=== PATIENT | male | born 1950 | race Caucasian/White ===

== ENCOUNTER 2020-04-28 08:22 | Emergency (ER) | payer OTHER ==
[2020-04-28] MEDS ORDERED: TETRACAINE HCL 0.5% 4ML OPTH ONE (08:59)
[2020-04-28] MEDS ORDERED: FLUORESCEIN SODIUM 1 MG/WRAP ONE (08:59)
--- NOTE | 2020-04-28 09:04 | EDPHYS ---
Physician Documentation [facility] Name: Nacho Martínez Age: 69 yrs Sex: Male : 1950 Arrival Date: 04/28/2020 Time: 08:24 Bed 13 Private MD: ED Physician Andrew Green HPI: 04/28 08:55 This 69 yrs old Male presents to ER via Ambulatory with complaints of Eye rn Problem. 08:55 The patient is experiencing foreign body sensation, redness, tearing, The patient rn sustained Unknown. to the left eye. Onset: The symptoms/episode began/occurred 2 day(s) ago. Duration: the symptoms are continuous. Aggravated by nothing. Alleviated by saline drops. Patient wears glasses. Severity of symptoms: At their worst the symptoms were mild in the emergency department the symptoms are unchanged. The patient has not experienced similar symptoms in the past. The patient has not recently seen a physician. Does not remember something hitting eye but denies high speed injury such as grinder gear or something similar. Reports has been outside a lot, windy, as well as playing with grandkids and might have gotten something in eye. . Historical: - Allergies: 08:36 Grass; sv 08:36 No Known Drug Allergies; sv - PMHx: 08:36 None; sv - PSHx: 08:36 mouth, nose, ear reconstruction; left leg; sv - Immunization history:: Flu vaccine is not up to date. - Social history:: Smoking status: Patient denies any tobacco usage or history of. - Family history:: not pertinent. - Hospitalizations: : No recent hospitalization is reported. ROS: 08:55 Constitutional: Negative for fever, chills, and weight loss, Eyes: + left eye pain and rn redness Exam: 08:55 Visual Acuity: Visual acuity is within normal limits. rn 08:55 Constitutional: This is a well developed, well nourished patient who is awake, alert, rn and in no acute distress. Eyes: + small corneal abrasion at 5 o'clock position left eye, no foreign body or rust ring Vital Signs: 08:33 BP 160 / 93; Pulse 76; Resp 16; Temp 97.9; Pulse Ox 99% ; Weight 97.52 kg; Height 5 ft. sv 9 in. (175.26 cm); 09:00 BP 132 / 83; Pulse 70; Resp 14; Pulse Ox 96% on R/A; vg1 08:33 Body Mass Index 31.75 (97.52 kg, 175.26 cm) MDM: 08:27 Patient medically screened. rn 08:55 Differential diagnosis: Corneal abrasion of Corneal ulcer of Foreign body in. Data rn reviewed: vital signs, nurses notes, and as a result, I will discharge patient. Counseling: I had a detailed discussion with the patient and/or guardian regarding: the historical points, exam findings, and any diagnostic results supporting the discharge/admit diagnosis, the need for outpatient follow up, to return to the emergency department if symptoms worsen or persist or if there are any questions or concerns that arise at home. Response to treatment: the patient's symptoms have mildly improved after treatment, and as a result, I will discharge patient. Special discussion: I discussed with the patient/guardian in detail that at this point there is no indication for admission to the hospital. It is understood, however, that if the symptoms persist or worsen the patient needs to return immediately for re-evaluation. Administered Medications: No medications were administered Disposition: 04/28/20 09:03 Discharged to Home. Impression: Injury of conjunctiva and corneal abrasion without foreign body, left eye. - Condition is Stable. - Discharge Instructions: Corneal Abrasion. - Prescriptions for Vigamox 0.5 % Ophthalmic Drops - instill 1 drop by OPHTHALMIC route every 8 hours for 7 days; 5 milliliter. - Medication Reconciliation Form, Thank You Letter, Antibiotic Education, Prescription Opioid Use form. - Follow up: Private Physician; When: As needed; Reason: Recheck today's complaints, Re-evaluation by your physician. - Problem is new. - Symptoms have improved. Signatures: Natividad D eLeon RN RN sv Andrew Green MD MD rn Garcia, Anushka, RN RN vg1 Corrections: (The following items were deleted from the chart) 09:01 08:55 Constitutional: Negative for fever, chills, and weight loss, Eyes: + small rn corneal abrasion at 5 o'clock position left eye, no foreign body or rust ring rn 09:14 09:03 04/28/2020 09:03 Discharged to Home. Impression: Injury of conjunctiva and vg1 corneal abrasion without foreign body, left eye. Condition is Stable. Forms are Medication Reconciliation Form, Thank You Letter, Antibiotic Education, Prescription Opioid Use. Follow up: Private Physician; When: As needed; Reason: Recheck today's complaints, Re-evaluation by your physician. Problem is new. Symptoms have improved. rn
--- NOTE | 2020-04-28 09:04 | ER ---
Nurse's Notes [facility] Name: Nacho Martínez Age: 69 yrs Sex: Male : 1950 Arrival Date: 04/28/2020 Time: 08:24 Bed 13 Private MD: Diagnosis: Injury of conjunctiva and corneal abrasion without foreign body, left eye Presentation: 04/28 08:33 Chief complaint: Patient states: left eye redness and drainage x 2 days. Coronavirus sv screen: Client denies travel out of the [place] in the last 14 days. At this time, the client does not indicate any symptoms associated with coronavirus-19. Ebola Screen: No symptoms or risks identified at this time. Initial Sepsis Screen: Does the patient meet any 2 criteria? No. Patient's initial sepsis screen is negative. Does the patient have a suspected source of infection? No. Patient's initial sepsis screen is negative. Risk Assessment: Do you want to hurt yourself or someone else? Patient reports no desire to harm self or others. Onset of symptoms was April 26, 2020. 08:33 Method Of Arrival: Ambulatory sv 08:33 Acuity: UNRULY 3 sv Historical: - Allergies: 08:36 Grass; sv 08:36 No Known Drug Allergies; sv - PMHx: 08:36 None; sv - PSHx: 08:36 mouth, nose, ear reconstruction; left leg; sv - Immunization history:: Flu vaccine is not up to date. - Social history:: Smoking status: Patient denies any tobacco usage or history of. - Family history:: not pertinent. - Hospitalizations: : No recent hospitalization is reported. Screenin:30 Abuse screen: Denies threats or abuse. Nutritional screening: No deficits noted. vg1 Tuberculosis screening: No symptoms or risk factors identified. Fall Risk No fall in past 12 months (0 pts). No secondary diagnosis (0 pts). No IV (0 pts). Ambulatory Aid- None/Bed Rest/Nurse Assist (0 pts). Gait- Normal/Bed Rest/Wheelchair (0 pts) Mental Status- Oriented to own ability (0 pts). Total Walters Fall Scale indicates No Risk (0-24 pts). Assessment: 08:30 General: Appears in no apparent distress. comfortable, Behavior is calm, cooperative. vg1 08:30 General: Reports Left eye irriatation, that began about 3-4 days ago. States feels like vg1 something is in the eye. Stated that on the first day that he had crust on the eye and had to place water to open it. States no injury to eye. Pain: Denies pain. Neuro: Level of Consciousness is awake, alert, obeys commands, Oriented to person, place, time, situation. Cardiovascular: Patient's skin is warm and dry. Respiratory: Airway is patent is compromised Respiratory effort is even, unlabored, Respiratory pattern is regular, symmetrical. GI: No signs and/or symptoms were reported involving the gastrointestinal system. : No signs and/or symptoms were reported regarding the genitourinary system. EENT: Eyes are tearing on left eye Sclera/Cornea are reddened in left eye. Derm: Skin is pink, warm \T\ dry. Musculoskeletal: Range of motion: intact in all extremities. Vital Signs: 08:33 BP 160 / 93; Pulse 76; Resp 16; Temp 97.9; Pulse Ox 99% ; Weight 97.52 kg; Height 5 ft. sv 9 in. (175.26 cm); 09:00 BP 132 / 83; Pulse 70; Resp 14; Pulse Ox 96% on R/A; vg1 08:33 Body Mass Index 31.75 (97.52 kg, 175.26 cm) sv ED Course: 08:24 Patient arrived in ED. rg4 08:27 Andrew Green MD is Attending Physician. rn 08:28 Anushka Anton RN is Primary Nurse. vg1 08:35 Triage completed. sv 08:35 Patient has correct armband on for positive identification. Bed in low position. Call vg1 light in reach. Pulse ox on. NIBP on. 08:36 Arm band placed on. sv 09:05 No provider procedures requiring assistance completed. Patient did not have IV access vg1 during this emergency room visit. Administered Medications: No medications were administered Outcome: 09:03 Discharge ordered by . rn 09:12 Discharged to home ambulatory. vg1 09:12 Condition: stable 09:12 Discharge instructions given to patient, Instructed on discharge instructions, follow up and referral plans. medication usage, Demonstrated understanding of instructions, follow-up care, medications, Prescriptions given X 1. 09:14 Patient left the ED. vg1 Signatures: Natividad De Leon RN RN Andrew Gould MD MD rn Garcia, Mabel rg4 Anushak Anton, RN RN vg1
[2020-04-30 09:13] VITALS: BP 132/83; O2SAT 96
[2020-04-30 09:19] VITALS: TEMP 97.9
== END 2020-04-28 09:14 | disposition home or self-care (01) ==
LOC: ER 08:22
DX: S05.02XA Injury of conjunctiva and corneal abrasion without foreign body, left eye, initial encounter (principal); X58.XXXA Exposure to other specified factors, initial encounter; Y93.9 Activity, unspecified; Y92.017 Garden or yard in single-family (private) house as the place of occurrence of the external cause
CPT/HCPCS: 99283

== ENCOUNTER 2023-10-08 16:00 | Emergency (ER) | payer OTHER ==
--- OUTSIDE RECORDS SUMMARY | 2023-10-08 16:04 | XMS REPORT | Continuity of Care Document ---
Author Name Unknown Address [address] [place] [address] [address] [place] [address] [facility] Address [address] [facility] [address] [place] [address] Care Team Providers Care Bible Reader Name Role Phone Unavailable Unavailable Unavailable Payers Payer Name Policy Type Policy Number Effective Date Expirati on Date Source [employer] [id number] Allergies, Adverse Reactions, Alerts Allergy Name Allergy Type Status Severity Reaction(s) Onset Date Inactive Date Treating Clinician Comments Source NO KNOWN ALLERGIE S Drug Class Active [facility] Encounters Start Date/Time End Date/Time Encounter Type Admission Type Attending Clinicians Care Facility Care Department Encounter ID Source 2020-10-01 08:54:00 2020-10-01 08:54:00 Emergency X [facility] ERT [id number] [facility]
[2023-10-08 17:08] LABS: Absolute Eosinophils 0.1 K/uL (0-0.5); Absolute Lymphocytes (CBC) 1.3 K/uL (0.7-4.9); Absolute Monocytes 0.5 K/uL (0.1-1.3); Absolute Neutrophil 5.2 K/uL (1.8-8.0); Basophils % 0.7 % (0-1.3); Eosinophils % 1.4 % (0-4.4); Hematocrit 41.3 % (39.6-49.0); Hemoglobin 14.5 g/dL (13.6-17.9); MCH 28.8 pg (27.0-35.0); MCHC 35.2 g/dL (32.0-36.0); MCV 81.8 fL (80-100); MPV 7.6 fL (7.6-11.3); Monocytes % 6.6 % (3.3-12.3); Neutrophils % 73.3 % (41.7-73.7); Nucleated Red Blood Cells % 0.1 % (0-0); Platelets 201 thou/uL (152-406); RBC Red Blood Cell Count 5.05 M/uL (4.33-5.43); Red Cell Distribution Width 13.7 % (12.1-15.2)
[2023-10-08 17:21] LABS: Anion Gap 9.6 mEq/L (5.0-15.0); Potassium 3.6 mEq/L (3.5-5.1)
--- NOTE | 2023-10-08 17:36 | ER ---
Nurse's Notes [facility] Name: Nacho Martínez Age: 73 yrs Sex: Male : 1950 Arrival Date: 10/08/2023 Time: 16:00 Bed 5 Private MD: Diagnosis: Essential (primary) hypertension Presentation: 10/07 16:03 Chief complaint: EMS states: Pt from home, recently had lisinopril increased from 5 mg ph to 10 mg, took meds today as prescribed but BP remained high, initial BP 180s systolic, 5 mg labetalol given, pt asymptomatic. Coronavirus screen: Vaccine status: Patient reports receiving the 2nd dose of the covid vaccine. Ebola Screen: No symptoms or risks identified at this time. Initial Sepsis Screen: Does the patient meet any 2 criteria? No. Patient's initial sepsis screen is negative. Does the patient have a suspected source of infection? No. Patient's initial sepsis screen is negative. Risk Assessment: Do you want to hurt yourself or someone else? Patient reports no desire to harm self or others. Onset of symptoms was October 08, 2023. 16:03 Method Of Arrival: EMS: [facility] 16:03 Acuity: UNRULY 3 Triage Assessment: 16:20 General: Appears in no apparent distress. Behavior is calm, cooperative. Pain: Denies ph pain. Neuro: Level of Consciousness is awake, alert, obeys commands, Oriented to person, place, situation. Cardiovascular: Capillary refill < 3 seconds in bilateral fingers Patient's skin is warm and dry. Respiratory: Airway is patent Respiratory effort is even, unlabored. Historical: - Allergies: 16:12 Grass; ph - Home Meds: 16:17 donepezil oral [Active]; lisinopril 10 mg Oral tablet [Active]; Metformin Oral [Active];ph - PMHx: 16:17 Diabetes mellitus; Hypertensive disorder; Dementia; ph - Immunization history:: Adult Immunizations unknown. - Infectious Disease History:: Denies. - Social history:: Smoking status: unknown. Screenin:04 [facility] ED Fall Risk Assessment (Adult) History of falling in the last 3 months, ph including since admission No falls in past 3 months (0 pts) Confusion or Disorientation No (0 pts) Intoxicated or Sedated No (0 pts) Impaired Gait No (0 pts) Mobility Assist Device Used No (0 pt) Altered Elimination No (0 pt) Score/Fall Risk Level 0 - 2 = Low Risk Oriented to surroundings, Maintained a safe environment, Hourly rounding (assess needs \T\ fall precautionary measures) done. Abuse screen: Denies threats or abuse. Denies injuries from another. Nutritional screening: No deficits noted. Tuberculosis screening: No symptoms or risk factors identified. Assessment: 17:04 General: SEE TRIAGE ASSESSMENT. ph Vital Signs: 16:03 Weight 87.54 kg; Height 5 ft. 9 in. ; ph 16:11 BP 159 / 90; Pulse 77; Resp 18; Pulse Ox 96% on R/A; ph 17:22 BP 141 / 70; Pulse 77; Resp 18; Pulse Ox 93% on R/A; ph 16:03 Body Mass Index 28.50 (87.54 kg, 175.26 cm) ph ED Course: 16:02 Patient arrived in ED. ph 16:05 Triage completed. ph 16:06 Estrada Cuenca DO is Attending Physician. ms3 16:11 Nandini Martínez RN is Primary Nurse. ph 17:03 Arm band placed on Patient placed in an exam room, on a stretcher, on pulse oximetry. ph 17:05 Patient has correct armband on for positive identification. Bed in low position. Call ph light in reach. Side rails up X 1. Pulse ox on. NIBP on. Door closed. Noise minimized. 17:15 Initial lab(s) drawn, by me, sent to lab. Inserted saline lock: 22 gauge in right ph forearm, using aseptic technique. Blood collected. 18:01 No provider procedures requiring assistance completed. IV discontinued, intact, ph bleeding controlled, No redness/swelling at site. Pressure dressing applied. Administered Medications: No medications were administered Medication: 17:04 VIS not applicable for this client. ph Outcome: 17:36 Discharge ordered by . ms3 18:02 Discharged to home ambulatory, with significant other, ph 18:02 Condition: good 18:02 Discharge instructions given to patient, significant other, Instructed on discharge instructions, follow up and referral plans. Demonstrated understanding of instructions, follow-up care, 18:02 Patient left the ED. ph Signatures: Nandini Martínez RN RN ph Estrada Cuenca DO DO ms3
--- NOTE | 2023-10-08 17:36 | EDPHYS ---
Physician Documentation [facility] Name: Nacho Martínez Age: 73 yrs Sex: Male : 1950 Arrival Date: 10/08/2023 Time: 16:00 Bed 5 Private MD: ED Physician Estrada Cuenca HPI: 10/07 16:24 This 73 yrs old Male presents to ER via EMS with complaints of High Blood Pressure. ms3 16:24 73-year-old male with past medical history of diabetes, hypertension, dementia presents ms3 to the emergency department via [facility] for elevated blood pressure. Patient recently had increase of his lisinopril from 5 mg to 10 mg 1 week prior to arrival. EMS notes patient's systolic blood pressure to be 189 on their arrival. Patient was administered 5 mg metoprolol with improvement of his blood pressure. Patient denies shortness of breath, chest pain, headache. Historical: - Allergies: 16:12 Grass; ph - Home Meds: 16:17 donepezil oral [Active]; lisinopril 10 mg Oral tablet [Active]; Metformin Oral [Active];ph - PMHx: 16:17 Diabetes mellitus; Hypertensive disorder; Dementia; ph - Immunization history:: Adult Immunizations unknown. - Infectious Disease History:: Denies. - Social history:: Smoking status: unknown. ROS: 16:24 Constitutional: Negative for fever, and chills. Cardiovascular: Negative for chest ms3 pain, and palpitations. Respiratory: Negative for shortness of breath, cough, wheezing, and pleuritic chest pain, Abdomen/GI: Negative for abdominal pain, nausea, vomiting, diarrhea, and constipation, MS/Extremity: Negative for injury and deformity, Skin: Negative for injury, rash, and discoloration, Exam: 16:24 Constitutional: This is a well developed, well nourished patient who is awake, alert, ms3 and in no acute distress. Head/Face: Normocephalic, atraumatic. Chest/axilla: Normal chest wall appearance and motion. Nontender with no deformity. Cardiovascular: Regular rate and rhythm with a normal S1 and S2. No gallops, murmurs, or rubs. Normal PMI, no JVD. No pulse deficits. Respiratory: Lungs have equal breath sounds bilaterally, clear to auscultation and percussion. No rales, rhonchi or wheezes noted. No increased work of breathing, no retractions or nasal flaring. Abdomen/GI: Soft, non-tender, with normal bowel sounds. No distension or tympany. No guarding or rebound. No evidence of tenderness throughout. Skin: Warm, dry with normal turgor. Normal color with no rashes, no lesions, and no evidence of cellulitis. MS/ Extremity: Pulses equal, no cyanosis. Neurovascular intact. Full, normal range of motion. Vital Signs: 16:03 Weight 87.54 kg; Height 5 ft. 9 in. ; ph 16:11 BP 159 / 90; Pulse 77; Resp 18; Pulse Ox 96% on R/A; ph 17:22 BP 141 / 70; Pulse 77; Resp 18; Pulse Ox 93% on R/A; ph 16:03 Body Mass Index 28.50 (87.54 kg, 175.26 cm) ph MDM: 16:11 Patient medically screened. ms3 16:24 Differential diagnosis: Hypertension versus anemia versus CKD. ms3 17:37 Data reviewed: vital signs, nurses notes, lab test result(s), and as a result, I will ms3 discharge patient. Historians other than the Patient: Spouse/Significant Other: Patient's . Care significantly affected by the following chronic conditions: Dementia, hypertension, diabetes. Counseling: I had a detailed discussion with the patient and/or guardian regarding the historical points, exam findings, and any diagnostic results supporting the discharge/admit diagnosis, lab results, the need for outpatient follow up, to return to the emergency department if symptoms worsen or persist or if there are any questions or concerns that arise at home. Special discussion: I discussed with the patient/guardian in detail that at this point there is no indication for admission to the hospital. It is understood, however, that if the symptoms persist or worsen the patient needs to return immediately for re-evaluation. ED course: Discussed labs with patient's . Patient with asymptomatic hypertension in the emergency department. Patient currently on lisinopril 10 mg daily. Discussed with patient's to increase to lisinopril 20 mg daily. Patient to follow-up with his primary care physician next week. Questions were answered. Return precautions discussed include worsening symptoms, nausea, vomiting, shortness of breath, chest pain. On reevaluation patient is alert, in no apparent distress, nontoxic-appearing, speaking full sentences. 10/07 16:11 Order name: CBC with Diff; Complete Time: 17:26 ms3 10/07 16:11 Order name: BMP; Complete Time: 17:26 ms3 Administered Medications: No medications were administered Disposition Summary: 10/08/23 17:36 Discharge Ordered Notes: Location: Home ms3 Condition: Stable ms3 Diagnosis - Essential (primary) hypertension ms3 Followup: ms3 - With: Private Physician - When: 2 - 3 days - Reason: Recheck today's complaints Discharge Instructions: - Discharge Summary Sheet ms3 - Hypertension, Adult ms3 Forms: - Medication Reconciliation Form ms3 - Antibiotic Education ms3 - Prescription Opioid Use ms3 - Patient Portal Instructions ms3 - Leadership Thank You Letter ms3 Signatures: Dispatcher [employer] Nandini Renee, RN RN ph Estrada Cuenca DO DO ms3 Corrections: (The following items were deleted from the chart) 16:11 16:11 CBC+H.LAB.BRZ ordered. EDMS EDMS 16:11 16:11 BASIC METABOLIC PANEL+C.LAB.BRZ ordered. EDMS EDMS
[2023-10-08 18:30] VITALS: BP 141/70; O2SAT 93
== END 2023-10-08 18:02 | disposition home or self-care (01) ==
LOC: ER 16:00
DX: I10 Essential (primary) hypertension (principal); F03.90 Unspecified dementia, unspecified severity, without behavioral disturbance, psychotic disturbance, mood disturbance, and anxiety
CPT/HCPCS: 36415; 80048; 85025; 99284